=== PATIENT | male | born 1990 | race Caucasian/White ===

== ENCOUNTER 2022-04-22 09:48 | Emergency (ER) | payer OTHER, SELFPAY ==
[2022-04-22 10:01] VITALS: BP 120/64; PULSE 72; RESP 14; TEMP 36.6; O2SAT 100
--- NOTE | 2022-04-22 12:14 | ED.GENADULT ---
HPI - General Adult General Chief complaint: Unspecified Stated complaint: rectal pain/bleeding Time Seen by Provider: 04/22/22 12:02 History of Present Illness HPI narrative: 31-year-old male history of diabetes on insulin presented with rectal bleed. Per patient for the last for 5 days she has noted bright red blood whenever going to the bathroom, was concern for this presents to the ED for further evaluation. He reports intermittent rectal pain, improved with warm baths. He denied history of constipation, nausea, vomiting, fevers, chills, unintentional weight loss, history of rectal cancer in the family. Past medical history: Diabetes Past surgical history: Denied Medications: Insulin Allergies: No known drug allergies Social: Denied smoking, alcohol, recreational drugs Related Data Allergies Allergy/AdvReac Type Severity Reaction Status Date / Time No Known Allergies Allergy Verified 04/22/22 11:31 Review of Systems Review of Systems: See HPI PMFSH Comments See HPI Exam Narrative: APPEARANCE: Alert, calm and cooperative, no acute distress, phonating, sitting comfortably during visit HEAD: atraumatic EYES: Pupils equal round an reactive to light, extra ocular movements intact, no conjunctival injection NOSE: Normal no drainage NECK: Supple, without meningismus ABDOMINAL: Soft, nontender, nondistended, no guarding, no rebound/peritoneal signs, no costovertebral tenderness to palpation BACK: no midline tenderness to palpation, no step offs RECTAL: no external lesions, no tears, no anal masses, trace blood on glove EXTREMITIES: No edema, palpable peripheral pulses, warm, well perfused, no tenderness to bilateral calves. NEURO: Alert, moving all extremities symmetrically, ambulating without deficit SKIN:: Warm, dry. 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[employer] Ursula Course Vital Signs Vital signs: Vital Signs Temperature 97.8 F 04/22/22 10:01 Pulse Rate 72 04/22/22 10:01 Respiratory Rate 14 04/22/22 10:01 Blood Pressure 120/64 04/22/22 10:01 Pulse Oximetry 100 04/22/22 10:01 Oxygen Delivery Room Air 04/22/22 10:01 Temperature 97.8 F 04/22/22 10:01 Pulse Rate 72 04/22/22 10:01 Respiratory Rate 14 04/22/22 10:01 Blood Pressure 120/64 04/22/22 10:01 Pulse Oximetry 100 04/22/22 10:01 Oxygen Delivery Room Air 04/22/22 10:01 Medical Decision Making [facility] Narrative Medical decision making narrative: Medical Decision Making 31-year-old male history of diabetes presented with 4 to 5 days of rectal bleed and pain. Denied nausea, vomiting, fevers, chills, unintentional weight loss. Physical exam benign, small amounts of blood on rectal exam, no external lesions, no masses palpated, vitals within normal limits. Impression: Differential diagnosis includes but not limited to internal versus external hemorrhoids. Malignancy considered, unlikely at this time. Sitz baths and increased fiber intake recommended. The patient tolerated oral intake, is alert and oriented, speaking with clear speech, ambulated with steady gait, and has remained hemodynamically stable throughout the ED visit. He has close follow up with his primary care provider for further managment and possible colonoscopy if symptoms persisted. Areas of diagnostic uncertainty discussed and strict return precautions shared with patient; encouraged to return to the emergency department if symptoms returned or worsened. The patient is safe to be discharged with follow up, provided he abide by the verbalized and written instruction, to which the patient has express understanding. Differential Diagnosis Differential Diagnosis: See MDM Vital Signs Vital Signs: Vital Signs Temperature 97.8 F 04/22/22 10:01 Pulse Rate 72 04/22/22 10:01 Respiratory Rate 14 04/22/22 10:01 Blood Pressure 120/64 04/22/22 10:01 Pulse Oximetry 100 04/22/22 10:01 Oxygen Delivery Room Air 04/22/22 1
[2022-04-22 12:57] VITALS: BP 133/82; PULSE 68; RESP 17; O2SAT 99
== END 2022-04-22 13:01 | disposition home or self-care (01) ==
PROVIDERS: Emergency Provider Emergency Medicine; PCP Internal Medicine
DX: K62.5 Hemorrhage of anus and rectum (principal); E11.9 Type 2 diabetes mellitus without complications; Z79.4 Long term (current) use of insulin
CPT/HCPCS: 99281